=== PATIENT | female | born 1955 | race Caucasian/White ===

== ENCOUNTER → 2018-08-29 | Outpatient (CLI) | payer MEDICARE ==
--- NOTE | 2018-08-29 18:21 | RAD ---
EXAM: Right lower extremity venous Doppler sonogram. HISTORY: Edema and pain. TECHNIQUE: Johnson scale and color Doppler sonographic evaluation of the right lower extremity veins with spectral waveform analysis was performed. FINDINGS: There is normal color flow, normal compressibility and there are normal spectral waveforms in the lower extremity veins. IMPRESSION: No Doppler evidence of lower extremity deep venous thrombosis. Electronically signed by: Radha Zavala MD (08/29/2018 6:18 PM) [facility]
== END | disposition home or self-care (01) ==
LOC: US 17:24
PROVIDERS: ATTEND Family Medicine
DX: M79.661 Pain in right lower leg (principal)
CPT/HCPCS: 93971

== ENCOUNTER → 2020-07-04 | Outpatient (CLI) | payer MEDICARE ==
[~2020-07-04] MED LIST: BIOT25006 PO; CARV6.25 PO; CBD OIL; DENO60DI SQ; DEXT30TA2 PO; DICL100G54 TP; HYDR-2769 PO; IBUP-1027 PO; MAGN500C10 PO; MECO10005 PO; MULT-245 PO; OMEP40CA45 PO; POTA10TA12 PO; SIMV20TA18 PO; Vitamin D; ZOLP5TAB5 PO; [UNRECOGNIZED DRUG - OTHER]
--- NOTE | 2020-07-04 15:22 | PDOC2 ---
INITIAL PAIN CONSULT DATE OF SERVICE: DOS: DATE: 07/04/20 TIME: 15:10 CHIEF COMPLAINT: Chief Complaint: Low back and left lower extremity pain Neck and right upper extremity pain HISTORY OF PRESENT ILLNESS: 64-year-old female presents with history of pain low back and left lower ext remity pain as well as neck and right upper extremity pain, for many years. Worse over the past 6 months or so as patient had a left leg ulcer which needed extensive wound care and antibiotic treatment over the past few months but is now healing still some residual pain in the left ankle itself. Patient reports he is been taking hydrocodone 10 mg on as-needed basis and has no significant side effects and it does decrease the pain by about 75%. Patient ports he been taking this for over a year for back and neck pain also. Patient have an MRI scan which is dated February 25, 2019 showing multilevel degenerative change without focal disc protrusion without central canal stenosis multilevel neuroforaminal encroachment outlined as well at L4-5 and L5-S1. Patient reports her pain is worse with walking standing changing positions putting weight on her left leg she is using a walker which she has with her today patient reports that wakens her up to 3 times a night but not every night does not affect her bowel bladder control but does affect ability to walk fairly significantly. Patient has tried physical therapy chiropractic treatment as well as trigger point injections all of which helped to some extent and she is ready to re-enroll in physical therapy as her wound is healed now on the left leg. Patient rates her disability rating 0-10 10 being the worst is an 8 with family home responsibilities 9 with recreation social activity occupation 5 a section behavior and self-care/support activities. Patient ports no loss of motor function but significant fatigability in the left leg with any standing or walking. PAST MEDICAL HISTORY: PMH: Hypertension, history of alcohol abuse, osteoporosis, depression, anxiety, cellulitis left lower extremity PREVIOUS SURGERIES: Past Surgical Hx: Bilateral revascularization procedures lower extremities, left foot surgery x2, x1, tonsillectomy and adenoidectomy CURRENT MEDICATIONS: Current Meds: Active Scripts Medications Dose Route/Sig Max Daily Dose Days Date Category Voltaren (Diclofenac Sodium) 100 Gm Gel..gram. 100 Gm TP PRN PRN 07/04/20 Reported [cbd oil topical cr] PRN 07/04/20 Reported Ibuprofen 400 Mg Tablet 400 Mg PO PRN Q6HRS PRN 07/04/20 Reported Klor-Con 10 (Potassium Chloride) 10 Meq Tablet.er Unknown Dose PO DAILY 07/04/20 Reported Magnesium (Magnesium Oxide) 500 Mg Capsule 500 Mg PO DAILY 07/04/20 Reported Biotin 2,500 Mcg Capsule 5,000 Mcg PO DAILY 07/04/20 Reported B12 Active (Mecobalamin) 1,000 Mcg Tab.chew 1,000 Mcg PO DAILY 07/04/20 Reported [Vitamin D] DAILY 07/04/20 Reported [collagen with biotin] 3 07/04/20 Reported Multi Vitamin Daily (Multivitamin) 1 Each Tablet 1 Tab PO DAILY 30 07/04/20 Reported Hydrocodone-Apap 10-325 (Hydrocodone Bit/Acetaminophen) 1 Tab Tablet 1 Tab PO PRN Q6HRS PRN 07/04/20 Reported Zolpidem Tartrate 5 Mg Tablet 5 Mg PO PRN QHS PRN 07/04/20 Reported Omeprazole 40 Mg Capsule.dr 40 Mg PO DAILY 07/04/20 Reported Simvastatin 20 Mg Tablet 20 Mg PO DAILY 07/04/20 Reported Coreg (Carvedilol) 6.25 Mg Tablet 6.25 Mg PO BIDWMEALS 07/04/20 Reported Adderall 30 Mg Tablet (Dextroamphetamine/Amphetamine) 30 Mg Tablet 1 Tab PO DAILY MDD 1 Tablet(s) 30 07/04/20 Reported Prolia (Denosumab) 60 Mg/1 Ml Disp.syrin 60 Mg SQ BIANNUAL 07/04/20 Reported ALLERGIES; Allergies: Coded Allergies: No Known Drug Allergies (Unverified , 07/04/20) FAMILY HISTORY: Family Hx: Significant for cancer and osteoporosis SOCIAL HISTORY: Social Hx: Patient does not drink alcohol quit many years ago does not smoke quit years ago as well denies any illegal illicit recreational drugs is single lives in her own apartment in [facility] REVIEW OF SYSTEMS: ROS: Positive for those items mentioned in history of present illness, all systems are reviewed, otherwise negative, is complete full and well-documented on patient's chart PHYSICAL EXAM: VS: Blood pressure is 139/80 pulse 74 respiration 16 temperatures 98.1 F height is 5 feet 3 inches weight is 144 pounds PE: PHYSICAL EXAMINATION: GENERAL: The patient is awake, alert, oriented, appropriate, very pleasant demeanor HEENT: Shows normocephalic, atraumatic. Extraocular movements are intact and symmetrical. Oral cavity: Mucous membranes moist and pink. Dentition is intact. NECK: Shows anterior throat supple without palpable lymphadenopathy noted. Swallow reflex symmetrical. CHEST: Shows normal on inspection. Breath sounds are clear bilaterally, no rales rhonchi or wheezes auscultated. HEART: Shows S1, S2 clear. No murmurs auscultated. ABDOMEN: Soft, nontender, nondistended. No palpable organomegaly is noted. No rebound or guarding demonstrated. BACK: Shows spine grossly in the midline. Normal-appearing cervical lordotic curvature patient shows good rotation motion of the cervical spine but tender with left lateral rotation past 45 degrees as well as with extension in the base of the neck only without radiation. There is slightly increased thoracic kyphosis, some minor flattening of the lumbar lordotic curvature. Lumbar paraspinous muscles show symmetrical on inspection, on palpation shows some moderate tenderness diffusely throughout the upper, middle and lower distribution of the paraspinous muscles bilaterally and also into the lower thoracic paraspinous musculature, firm and tender, but without specific trigger points, without radiation of pain. The patient has good rotational motion of the lumbar spine, both laterally as well as extension and flexion without significant difficulty. No tenderness over the spinous processes, sacrum or sacroiliac regions. EXTREMITIES: Lower extremities show deep tendon reflexes 1+ in the patellar and tendo calcaneus tendons. Motor exam is 5 on a scale of 5 with right dorsiflexion, extension, quadriceps and hamstring flexion and 3-4/5 on the left. Peripheral pulses are 1+ posterior tibial. 1+ peripheral edema is noted bilaterally. Lower extremities are warm and dry to touch, equal in color, left posterior calf has defect from previous wound and treatment but appears to be well-healing. Straight leg raise noted to be negative on right, left side is negative also. Gaenslen's and Adebayo's maneuvers are negative as well. Maynor cuellar's upper extremities show deep tendon reflexes 2+ in the biceps and triceps tendons, corporate sales manager strength is 5 out of 5 as is bicep and triceps flexion. The patient is able to stand, has difficulty trying to stand on her toes using a walker does appear to favor the left lower extremity at this fairly significant antalgic gait.. SKIN: Shows warm and dry, good turgor. No edema. No sores, rashes or bruising throughout. IMPRESSION: Impression: 64-year-old female with long history of low back pain left lower extremity pain Recent left lower extremity wound debridement and treatment with residual pain Neck and bilateral shoulder and right upper extremity pain Osteoporosis Hypertension Depression and anxiety Plan: Options were discussed with the patient including conservative medical management, continued physical therapies, and interventional techniques. Patient would like to follow most conservative course. We discussed trying a Medrol Dosepak prior to any interventional techniques. Patient is restarting physical therapy by her report in about 1 week which I feel will be very beneficial for her as well, especially in regard to the left lower extremity. Patient reports that she is currently taking hydrocodone 10 mg prescribed by her primary care physician on as-needed basis and has been on this for over a year. We discussed this in some detail and recommend that this be tapered if possible however the way she describes she is taking it appears appropriate at this time. Patient was given instructions will side effects be aware of with the Medrol Dosepak and will follow-up once this is completed. KATHIA KWONG MD Jul 04, 2020 15:21
== END | disposition home or self-care (01) ==
LOC: PNCL 12:45
PROVIDERS: ATTEND Anesthesiology
DX: M54.5 Low back pain (principal); M54.2 Cervicalgia; M79.662 Pain in left lower leg; M25.511 Pain in right shoulder; I10 Essential (primary) hypertension; F41.9 Anxiety disorder, unspecified; F32.9 Major depressive disorder, single episode, unspecified; Z98.890 Other specified postprocedural states; Z79.899 Other long term (current) drug therapy
CPT/HCPCS: G0463